=== PATIENT | female | born 1995 | race Caucasian/White ===

== ENCOUNTER 2016-10-16 18:27 | Emergency (ER) | payer MEDICAID ==
[2016-10-16 19:59] VITALS: TEMP 98; BMI 23.7
[2016-10-16 20:15] LABS: LEUKOCYTES/URINE 2+ (NEGATIVE); NITRITE/URINE NEG (NEGATIVE); URINE OCCULT BLOOD NEG (NEG/TRACE); WBC/URINE TNTC (0-5)
[2016-10-16] MEDS ORDERED: VALACYCLOVIR HCL 500 MG CAPLET PO ONE (20:29)
[2016-10-16] MEDS ORDERED: AZITHROMYCIN 250 MG TAB PO ONE (20:29)
[2016-10-16] MEDS ORDERED: CEFTRIAXONE 250 MG VIAL IM ONE (20:29)
--- NOTE | 2016-10-16 20:32 | EDPRACDOC ---
- General Information Chief Complaint: Female Urogenital Problems Stated Complaint: VAGINAL PAIN/RASH/ITCHING Time Seen by Provider: 10/16/16 20:17 Information Source: Patient Mode of Arrival: Car Home Medications: Home Medications Amoxicillin Trihydrate [Amoxicillin] 500 mg PO TID #21 tab 02/14/16 Promethazine Dextromethorphan [Phenergan DM] 5 ml PO Q6 PRN #120 ml 02/14/16 Ciprofloxacin HCl [Cipro] 500 mg PO BID #14 tab 10/16/16 Hydrocodone Bit/Acetaminophen [Lortab 5/325] 1 tab PO Q4-6H PRN #15 tab Valacyclovir HCl [Valtrex] 1,000 mg PO BID #20 caplet 10/16/16 Allergies/Adverse Reactions: Allergies Allergy/AdvReac Type Severity Reaction Status Date / Time No Known Allergies Allergy Verified 02/14/16 10:47 - History of Present Illness Onset: 3 days HPI: Pt states vaginal rash, painful x 3 days with vaginal discharge and lower abd pain, back pain. Denies fever, n/v, changes in bowel or bladder. Symptoms Started: Following Sexual Contact Relevant History: Reports: Sexually Active Vaginal Lesions: Reports: Vesicles Vaginal Discharge: Reports: Yellow Control Method: Reports: IUD Pain Severity: Mild Pruritis Severity: Moderate Associated Signs & Symptoms: Reports: Vaginal Discharge ED Past Medical History - History Reviewed Yes Nurses notes reviewed and agree except as marked - Patient Medical History Systemic History: Denies: Cancer, Anemia, Lupus - Family Medical History Reports: Diabetes (SISTER). Denies: Hypertension, Cancer, Stroke, Cardiac Disorders - Social Medical History Smoking Status: Never smoker ETOH: None Substance Abuse: None EDM Review of Systems - Review of Systems Constitutional: No Symptoms Reported. negative: Fever, Chills, Weakness, Fatigue, Loss of Appetite Respiratory: No Symptoms Reported. negative: Cough, Brassy Cough, Barky Cough, Shortness of Breath, Wheezing, Hemoptysis Cardiovascular: No Symptoms Reported. negative: Chest Pain, Palpitations, Syncope, Edema, Orthopnea, PND, Skin Mottling, Cyanosis Gastrointestinal: Pain Genitourinary: Dysuria, Discharge Neurological: No Symptoms Reported. negative: Headache, Dizziness, Seizure, Numbness, Weakness, Speech Difficulty, Gait Difficulty Musculoskeletal: Back Integumentary: Rash. negative: No Symptoms Reported, Bruising, Itching, Wound Allergic/Immunologic: No Symptoms Reported. negative: Hives, Itching Hematologic: No Symptoms Reported. negative: Lymphadenopathy, Easy Bruising, Easy Bleeding Psychiatric: No Symptoms Reported. negative: Anxiety, Depression, Hallucinations, Insomnia, Suicidal - Physical Exam Constitutional: Alert Oriented to: Time, Person, Place Last recorded Vital Signs: Last Vital Signs Temp 98.0 F 10/16/16 19:56 Pulse 71 10/16/16 19:56 Resp 16 10/16/16 19:56 BP 111/55 L 10/16/16 19:56 Pulse Ox 95 10/16/16 19:56 Oxygen Pulse Oxygen Saturation 95 O2 Device Room Air Oxygen Flow Rate Fraction of Inspired Oxygen ( FIO2) - HEENT Head: Normal ( normocephalic) Eye Exam: Normal (PERRL, EOMI, Sclera white) Neck: Normal (FROM, trachea at midline) - Respiratory/Cardiovascular Respiratory: Normal - CTA (BBS clear to auscultation without adventitious sounds ) Cardiovascular: Normal (RRR without murmur, gallop or rub) - GI Auscultation: Normal (NABS) Palpation: Normal (Soft,No rebound or guarding, non distended) Tenderness: Non tender - Bladder: Normal External: Rash (bilateral inner thighs, buttock, labia) Vagina: Discharge Cervix: Normal Uterus: Normal size Adnexa: Left: Tender - Musculoskeletal Back: Normal (Non-Tender) Extremities: Normal (Normal tone, Pulses 2+ No cyanosis or edema, FROM) - Integumentary Skin: Normal, Warm, Dry Lymphatics: Normal (no adenopathy) - Neurologic Memory Impaired: Normal Motor Function: Normal (Normal tone, Pulses 2+ No cyanosis or edema, FROM) Mood Description: Normal Perception: Normal ED Vaginal Exam External: Rash Vaginal Exam: Rash Vaginal Lesions: Vesicles Vaginal Discharge: Yellow Cervix: Discharge Uterus: Normal size Adnexa: Left, Tenderness - Differential Diagnosis Herpes, Physiologic Discharge, Trichomonas, UTI, Vaginitis (osis) - Results Urine Color Yellow 10/16/16 20:00 Urine Clarity Cldy 10/16/16 20:00 Urine pH 6.0 (5.0-8.0) 10/16/16 20:00 Ur Specific [place] >/=1.035 (1.003-1.035) 10/16/16 20:00 Urine Protein 1+ (NEG/TRACE) H 10/16/16 20:00 Urine Glucose (UA) Neg (NEGATIVE) 10/16/16 20:00 Urine Ketones Neg (NEGATIVE) 10/16/16 20:00 Urine Occult Blood Neg (NEG/TRACE) 10/16/16 20:00 Urine Nitrite Neg (NEGATIVE) 10/16/16 20:00 Urine Bilirubin Neg (NEGATIVE) 10/16/16 20:00 Urine Urobilinogen <2.0 MG/DL (0-1) 10/16/16 20:00 Ur Leukocyte Esterase 2+ (NEGATIVE) H 10/16/16 20:00 Urine RBC 10-20 (0-5) H 10/16/16 20:00 Urine WBC Tntc (0-5) H 10/16/16 20:00 Ur Epithelial Cells 3+ 10/16/16 20:00 Urine Bacteria 3+ (NEG/FEW) H 10/16/16 20:00 Urine Mucus Large (NEG/OCC) 10/16/16 20:00 Urine Test Neg (NEGATIVE) 10/16/16 20:00 Lab Results 10/16/16 10/16/16 20:00 20:00 Urine Color Yellow Urine Clarity Cldy Urine pH 6.0 Ur Specific [place] >/=1.035 Urine Protein 1+ H Urine Glucose (UA) Neg Urine Ketones Neg Urine Occult Blood Neg Urine Nitrite Neg Urine Bilirubin Neg Urine Urobilinogen <2.0 Ur Leukocyte Esterase 2+ H Urine RBC 10-20 H Urine WBC Tntc H Ur Epithelial Cells 3+ Urine Bacteria 3+ H Urine Mucus Large Urine Test Neg Decision Time to Discharge: 21:32 - Departure Disposition: Home Condition: Good Final Diagnosis: UTI (lower urinary tract infection), Herpes genitalis in women, Cervicitis Instructions: Urinary Tract Infection in Women (ED), Dysuria, Cervicitis (ED), Genital Herpes Simplex (ED) Education/Counseling Given To: Patient Education/Counseling Given Regarding: Diagnosis, Treatment, Follow Up Referrals: Giuseppe Vargas MD [Primary Care Provider] - One Week Ashley Zaragoza DO [Staff Physician] - One Week Prescriptions: Ciprofloxacin HCl [Cipro] 500 mg PO BID #14 tab Hydrocodone Bit/Acetaminophen [Lortab 5/325] 1 tab PO Q4-6H PRN #15 tab PRN Reason: Pain Valacyclovir HCl [Valtrex] 1,000 mg PO BID #20 caplet Additional Instructions: Treat all sexual partners. Return for worse or different symptoms.
[2016-10-16 21:47] VITALS: BP 116/62; PULSE 68
[2016-10-19 05:41] LABS: CHLAMY BY NUCLEIC ACID AMP Negative (Negative)
[2016-10-19 06:24] LABS: GC BY NUCLEIC ACID AMP Negative (Negative)
== END 2016-10-16 21:45 | disposition home or self-care (01) ==
LOC: EDMC 18:27
DX: N39.0 Urinary tract infection, site not specified (principal); A60.00 Herpesviral infection of urogenital system, unspecified; N72 Inflammatory disease of cervix uteri
CPT/HCPCS: 81001; 81025; 87210; 87220; 87491; 87591; 96372; 99283; J0696; J3490